=== PATIENT | female | born 1935 | race Caucasian/White ===

== ENCOUNTER 2016-03-06 17:13 | Observation (INO) | payer MEDICARE, BC ==
[2016-03-06] MEDS ORDERED: SODIUM CHLORIDE 0.9% 1,000 ML IV STA (17:18)
[2016-03-06 17:50] LABS: Basophils # (A) 0.1 k/uL (0-0.2); Basophils % (A) 1 %; CH 31.7; CHCM 34.7; Eosinophils # (A) 0.2 k/uL (0-0.7); Eosinophils % (A) 2 %; HCT 43.8 % (34.0-46.0); HDW 2.74; HGB 14.8 gm/dL (11.4-16.0); Luc # (Auto) 0.11; Luc % (Auto) 1; Lymphocytes # (A) 1.7 k/uL (1.0-4.8); Lymphocytes % (A) 15 %; MCHC 33.8 g/dL (31.0-37.0); MCV 91.7 fL (80.0-100.0); Mean Platelet Volume 7.2; Monocytes # (A) 0.6 k/uL (0-1.0); Monocytes % (A) 5 %; Neutrophils # (A) 8.6 k/uL (1.3-7.7); Neutrophils % (A) 76 %; RBC 4.78 m/uL (3.80-5.40); RDW 12.6 % (11.5-15.5); WBC 11.2 k/uL (3.8-10.6); WBC (Perox) 11.61
[2016-03-06 18:05] LABS: Calcium 9.7 mg/dL (8.4-10.2); Potassium 4.1 mmol/L (3.5-5.1); Total Bilirubin 1.1 mg/dL (0.2-1.3); Total Protein 6.9 g/dL (6.3-8.2)
[2016-03-06 18:14] LABS: Prothrombin Time 10.2 sec (9.0-12.0)
[2016-03-06 18:15] LABS: Partial Thromboplastin Time 21.5 sec (22.0-30.0)
--- NOTE | 2016-03-06 18:33 | CT ---
EXAMINATION TYPE: CT brain wo con DATE OF EXAM: 03/06/2016 6:27 PM COMPARISON: 03/07/2014 HISTORY: weakness CT DLP: 1121 mGycm Automated exposure control for dose reduction was used. FINDINGS: There is cerebral cortical atrophy. There is no mass effect nor midline shift. There is no sign of in tracranial hemorrhage. The calvarium is intact. IMPRESSION: Cerebral atrophy. No acute intracranial abnormality. No change compared to old exam.
--- NOTE | 2016-03-06 18:41 | CT ---
EXAMINATION TYPE: CT abdomen pelvis wo con DATE OF EXAM: 03/06/2016 6:27 PM COMPARISON: 12/30/2014 HISTORY: Lower Abdominal pain with Nausea and vomiting. CT DLP: 763 mGycm Automated exposure control for dose reduction was used. FINDINGS: Lung bases are clear of consolidation. There is no pleural effusion. There are clips from cholecystectomy. Liver shows no focal defect. Spleen appears normal. There is no sign of a pancreatic mass. Bile ducts are not dilated. There is no adrenal mass. Kidneys have normal size and contour. There is no hydronephrosis. Ureters are not dilated. There is no retroperitoneal a denopathy. There is no ascites. There is no evidence of appendicitis. Bladder distends smoothly. Ther e is no sign of a pelvic mass. There is retained fecal material in the rectum and sigmoid colon. Ther e are a few sigmoid diverticula. There is no sign of diverticulitis. I see no bony destructive proces s. There are multilevel spondylotic changes in the lumbar spine with vacuum disc. There is no benson harley fracture. IMPRESSION: THERE IS SOME CONSTIPATION. MILD SIGMOID DIVERTICULOSIS WITHOUT EVIDENCE OF DIVERTICULITIS. NO SIGN O F ACUTE ABDOMEN AND PELVIS. FECAL MATERIAL IS INCREASED COMPARED TO OLD EXAM.
--- NOTE | 2016-03-06 18:42 | XR ---
EXAMINATION TYPE: XR chest 2V DATE OF EXAM: 03/06/2016 6:25 PM COMPARISON: 12/30/2014 HISTORY: Syncope TECHNIQUE: Frontal and lateral views of the chest are obtained. FINDINGS: There is no heart failure nor confluent pneumonic infiltrate. Heart and mediastinum are no rmal. Diaphragm is normal. There are chest leads. Bony thorax is intact. IMPRESSION: No active cardiopulmonary disease. No change.
[2016-03-06] MEDS ORDERED: ONDANSETRON 4 MG/2 ML VIAL IVP PRN (18:56)
[2016-03-06] MEDS ORDERED: traMADol 50 MG TAB PO PRN (18:56)
[2016-03-06] MEDS ORDERED: NALOXONE 0.4 MG/ML 1 ML VIAL IV PRN (18:56)
--- NOTE | 2016-03-06 18:56 | ED ---
General Adult HPI - General Chief complaint: Abdominal Pain Stated complaint: Abd Pain Time Seen by Provider: 03/06/16 17:18 Source: patient, family, EMS Mode of arrival: EMS Limitations: no limitations - History of Present Illness Initial comments: Patient presents with her son, who states that she had a syncopal episode earlier today. Upon speaking with her, the patient does state that she lost consciousness, and is currently having some lower abdominal pain. She has no back pain. She has no chest pain. She has no shortness of breath. She has no palpitations. The son states that she was completely out of it, had a glassy appearance to her face. She did not lose bowel or bladder continence. She denies urinary retention. - Related Data Home Medications Medication Instructions Recorded Confirmed Albuterol Sulfate [Proair Hfa] 2 puff INHALATION RT-Q4H PRN 02/04/14 03/06/16 amLODIPine [Norvasc] 5 mg PO DAILY 02/04/14 03/06/16 Aspirin 81 mg PO MOWEFR 01/21/16 03/06/16 Budesonide-Formot 160-4.5 Mcg 2 puff INHALATION RT-BID 01/21/16 03/06/16 [Symbicort 160-4.5 Mcg Inhaler] Sertraline HCl [Zoloft] 25 mg PO DAILY 03/06/16 03/06/16 Previous Rx's Medication Instructions Recorded Candesartan Cilexetil [Atacand] 32 mg PO DAILY #1 tab 09/03/15 Allergies Allergy/AdvReac Type Severity Reaction Status Date / Time No Known Allergies Allergy Verified 03/06/16 17:53 Review of Systems ROS Statement: Those systems with pertinent positive or pertinent negative responses have been documented in the HPI. ROS Other: All systems not noted in ROS Statement are negative. Past Medical History Past Medical History: Asthma, Hypertension Additional Past Medical History / Comment(s): patient denies memory impairment, but is on aricept. History of Any Multi-Drug Resistant Organisms: None Reported Past Surgical History: Cholecystectomy Past Anesthesia/Blood Transfusion Reactions: No Reported Reaction Additional Past Anesthesia/Blood Transfusion Reaction / Comment(s): pt states she has not had a blood transfusion. Past Psychological History: Depression Smoking Status: Never smoker Past Alcohol Use History: None Reported Past Drug Use History: None Reported - Past Family History Mother Family Medical History: Asthma Father Family Medical History: COPD Additional Family Medical History / Comment(s): patient states, "he probably from smoking." General Exam Limitations: no limitations General appearance: alert, in no apparent distress Head exam: Present: atraumatic, normocephalic, normal inspection Eye exam: Present: normal appearance, PERRL, EOMI. Absent: scleral icterus, conjunctival injection, periorbital swelling ENT exam: Present: normal exam, mucous membranes moist Neck exam: Present: normal inspection. Absent: tenderness, meningismus, lymphadenopathy Respiratory exam: Present: normal lung sounds bilaterally. Absent: respiratory distress, wheezes, rales, rhonchi, stridor Cardiovascular Exam: Present: regular rate, normal rhythm, normal heart sounds. Absent: systolic murmur, diastolic murmur, rubs, gallop, clicks GI/Abdominal exam: Present: soft, normal bowel sounds. Absent: distended, tenderness, guarding, rebound, rigid Extremities exam: Present: normal inspection, full ROM, normal capillary refill. Absent: tenderness, pedal edema, joint swelling, calf tenderness Back exam: Present: normal inspection Neurological exam: Present: alert, oriented X3, CN II-XII intact Psychiatric exam: Present: normal affect, normal mood Skin exam: Present: warm, dry, intact, normal color. Absent: rash Course Vital Signs 03/06/16 03/06/16 03/06/16 17:17 17:23 17:41 Temperature 97.9 F Pulse Rate 64 59 L 58 L Respiratory 22 18 18 Rate Blood Pressure 134/83 91/56 113/61 O2 Sat by Pulse 100 93 L Oximetry EKG Findings - EKG Comments: EKG Findings:: Twelve-lead EKG is obtained, interpreted by me as showing ventricular rate 61 bpm, normal MA interval and QRS complex is, no ST elevation or depression, interpreted by me as normal sinus and, normal EKG. Medical Decision Making - Medical Decision Making Patient complains of a syncopal episode, belly pain. At this time she is alert and appropriate, answering questions. She does confirm syncopal episode, also demonstrated by her son. I believe that given her age and comorbidities she will require admission to the hospital. - Lab Data Result diagrams: 03/06/16 17:30 03/06/16 17:30 Lab Results 03/06/16 03/06/16 03/06/16 Range/Units 17:30 17:30 17:30 WBC 11.2 H (3.8-10.6) k/uL RBC 4.78 (3.80-5.40) m/uL Hgb 14.8 (11.4-16.0) gm/dL Hct 43.8 (34.0-46.0) % MCV 91.7 (80.0-100.0) fL MCH 31.0 (25.0-35.0) pg MCHC 33.8 (31.0-37.0) g/dL RDW 12.6 (11.5-15.5) % Plt Count 349 (150-450) k/uL Neutrophils % 76 % Lymphocytes % 15 % Monocytes % 5 % Eosinophils % 2 % Basophils % 1 % Neutrophils # 8.6 H (1.3-7.7) k/uL Lymphocytes # 1.7 (1.0-4.8) k/uL Monocytes # 0.6 (0-1.0) k/uL Eosinophils # 0.2 (0-0.7) k/uL Basophils # 0.1 (0-0.2) k/uL PT 10.2 (9.0-12.0) sec INR 1.0 (<1.1) APTT 21.5 L (22.0-30.0) sec Sodium 145 (137-145) mmol/L Potassium 4.1 (3.5-5.1) mmol/L Chloride 105 (98-107) mmol/L Carbon Dioxide 22 (22-30) mmol/L Anion Gap 18 mmol/L BUN 21 H (7-17) mg/dL Creatinine 1.45 H (0.52-1.04) mg/dL Est GFR (MDRD) Af Amer 42 (>60 ml/min/1.73 sqM) Est GFR (MDRD) Non-Af 35 (>60 ml/min/1.73 sqM) Glucose 115 H (74-99) mg/dL Calcium 9.7 (8.4-10.2) mg/dL Magnesium 2.0 (1.6-2.3) mg/dL Total Bilirubin 1.1 (0.2-1.3) mg/dL AST 26 (14-36) U/L ALT 30 (9-52) U/L Alkaline Phosphatase 165 H (38-126) U/L Troponin I (0.000-0.034) ng/mL Total Protein 6.9 (6.3-8.2) g/dL Albumin 4.1 (3.5-5.0) g/dL 03/06/16 Range/Units 17:30 WBC (3.8-10.6) k/uL RBC (3.80-5.40) m/uL Hgb (11.4-16.0) gm/dL Hct (34.0-46.0) % MCV (80.0-100.0) fL MCH (25.0-35.0) pg MCHC (31.0-37.0) g/dL RDW (11.5-15.5) % Plt Count (150-450) k/uL Neutrophils % % Lymphocytes % % Monocytes % % Eosinophils % % Basophils % % Neutrophils # (1.3-7.7) k/uL Lymphocytes # (1.0-4.8) k/uL Monocytes # (0-1.0) k/uL Eosinophils # (0-0.7) k/uL Basophils # (0-0.2) k/uL PT (9.0-12.0) sec INR (<1.1) APTT (22.0-30.0) sec Sodium (137-145) mmol/L Potassium (3.5-5.1) mmol/L Chloride (98-107) mmol/L Carbon Dioxide (22-30) mmol/L Anion Gap mmol/L BUN (7-17) mg/dL Creatinine (0.52-1.04) mg/dL Est GFR (MDRD) Af Amer (>60 ml/min/1.73 sqM) Est GFR (MDRD) Non-Af (>60 ml/min/1.73 sqM) Glucose (74-99) mg/dL Calcium (8.4-10.2) mg/dL Magnesium (1.6-2.3) mg/dL Total Bilirubin (0.2-1.3) mg/dL AST (14-36) U/L ALT (9-52) U/L Alkaline Phosphatase (38-126) U/L Troponin I <0.012 (0.000-0.034) ng/mL Total Protein (6.3-8.2) g/dL Albumin (3.5-5.0) g/dL Disposition Clinical Impression: Syncope Disposition: ADMITTED IP TO THIS HOSP Condition: Fair Time of Disposition: 18:56
[2016-03-06] MEDS ORDERED: ALBUTEROL NEBULIZED 2.5 MG/3 ML INHALATION PRN (18:58)
[2016-03-06 19:17] LABS: Appearance,Urine Cloudy (Clear); Bacteria,Urine Many /hpf; Bilirubin,Urine 1+ (Negative); Glucose,Urine (UA) Negative (Negative); Ketones,Urine Trace (Negative); Leukocyte Esterase,Urine Large (Negative); Mucus,Urine Few /hpf; Nitrite,Urine Negative (Negative); PH, Urine 5.5 (5.0-8.0); Particle Count 34291; Protein,Urine 1+ (Negative); RBC,Urine 4 /hpf (0-5); Specific Gravity,Urine 1.015 (1.001-1.035); UA Billing (MACRO vs. MICRO) MICRO; WBC,Urine >182 /hpf (0-5)
[2016-03-06] MEDS: SYMBICORT 160-4.5 MCG INHALER INHALATION SCH (19:54)
[2016-03-06 21:24] VITALS: BMI 24.0
[2016-03-06] MEDS: FAMOTIDINE 20 MG TAB PO SCH (23:48)
[2016-03-07] MEDS: SYMBICORT 160-4.5 MCG INHALER INHALATION SCH ×2 (08:10→20:40)
[2016-03-07] MEDS ORDERED: ASPIRIN 81 MG CHEW PO SCH (09:00)
[2016-03-07] MEDS: LEVOFLOXACIN 500MG-D5W PMX 500 MG in DEXTROSE/WATER 1 100ML.BAG IVPB SCH (09:53)
[2016-03-07] MEDS: SODIUM CHLORIDE 0.9% 1,000 ML IV SCH ×2 (09:54→21:51)
[2016-03-07] MEDS: FAMOTIDINE 20 MG TAB PO SCH (09:54)
[2016-03-07] MEDS: SERTRALINE 25 MG TAB PO SCH (09:54)
[2016-03-07] MEDS: amLODIPine 5 MG TAB PO SCH (13:06)
[2016-03-07] MEDS ORDERED: INFLUENZA VACCINE (3YR+) 60 MCG/0.5 ML SYRINGE IM ONE (17:41)
[2016-03-08] MEDS: PANTOPRAZOLE 40 MG/10 ML VIAL IVP SCH ×2 (00:02→08:28)
[2016-03-08] MEDS: LEVOFLOXACIN 500MG-D5W PMX 500 MG in DEXTROSE/WATER 1 100ML.BAG IVPB SCH (08:26)
[2016-03-08] MEDS: amLODIPine 5 MG TAB PO SCH (08:28)
[2016-03-08] MEDS: SERTRALINE 25 MG TAB PO SCH (08:28)
[2016-03-08] MEDS: HEPARIN SODIUM,PORCINE 5,000 UNIT/ML 1 ML VIAL SQ SCH ×2 (08:28→20:32)
[2016-03-08] MEDS ORDERED: FAMOTIDINE 20 MG TAB PO SCH (09:00)
[2016-03-08] MEDS: SYMBICORT 160-4.5 MCG INHALER INHALATION SCH ×2 (09:35→21:07)
[2016-03-08] MEDS: SODIUM CHLORIDE 0.9% 1,000 ML IV SCH (11:16)
--- NOTE | 2016-03-08 12:20 | HP ---
DATE OF ADMISSION: 03/07/2016 CHIEF COMPLAINT: Syncope and diminished oral intake. HISTORY OF PRESENT ILLNESS: This 80-year-old woman with past medical history of multiple medical problems including asthma, history of dementia, hypertension, history of cholecystitis, history of depression being followed by Dr. Alvina Crow in the outpatient setting is being closely followed by family members taking turns. The patient apparently had diminished p.o. intake and the patient yesterday had episodes of syncope and the patient was staring for some time after passing out according to the son, which lasted probably a few seconds up to 20 to 30 seconds. Patient came to [facility]. Patient had relative hypotension and patient dehydrated. Creatinine was 1.4. The patient is being hydrated at this time. The patient also had features of urinary tract infection. IV antibiotics also initiated. There is no history of fever, rigors, chills. No history of headache at this time. PAST MEDICAL HISTORY: History of dementia, history of asthma, hypertension, history of cholecystectomy, depression. MEDICATIONS PRIOR TO ADMISSION: 1. Zoloft 25 mg daily. 2. Norvasc 5 mg daily. 3. Atacand 32 mg daily. 4. Symbicort 160/4.5, 2 puffs b.i.d. 5. Aspirin 81 mg Thursday, Thursday, Thursday. 6. ProAir HFA 2 puffs q.4 p.r.n. ALLERGIES: None. FAMILY HISTORY: History of asthma in the family. SOCIAL HISTORY: No history smoking. No history of alcohol. REVIEW OF SYSTEMS: ENT: Diminished hearing, diminished vision. CARDIOVASCULAR: No angina or palpitations. RESPIRATORY: No cough. GI: No nausea. : No dysuria. NERVOUS SYSTEM: No numbness or weakness. ALLERGY/IMMUNOLOGY: Asthma. MUSCULOSKELETAL: As mentioned earlier. HEMATOLOGY/ONCOLOGY: No history of anemia. ENDOCRINE: No history of diabetes, hypothyroidism CONSTITUTIONAL: As mentioned earlier. DERMATOLOGY: Negative. RHEUMATOLOGY: Negative. PSYCHIATRY: As mentioned earlier. PHYSICAL EXAMINATION: Patient is alert and oriented x( ) Pulse 56, blood pressure 120/59, respirations 16, temperature 97 degrees, pulse ox 96% on room air. HEENT: Conjunctivae normal. Oral mucosa dry. NECK: No jugular venous distention. No carotid bruit. No lymph node enlargement. CARDIOVASCULAR: S1 and S2, muffled. No S3, no S4. RESPIRATORY: Breath sounds diminished at the bases. A few scattered rhonchi, no crackles. ABDOMEN: Soft, nontender. No mass palpable. No hepatosplenomegaly. LEGS: No edema, no swelling. NERVOUS SYSTEM: Higher function as mentioned. Moves all four limbs. Mild diffuse weakness. LYMPHATIC: No lymphadenopathy in the neck, axillae or groin. SKIN: No ulcer, rash or bleeding. LABS: WBC 11.2, creatinine is 1.45. ASSESSMENT: 1. Syncope possibly hypovolemic secondary to hypotension and hypovolemia. 2. Possible urinary tract infection with early sepsis. 3. Increased WBC. 4. Increased creatinine with mild acute renal failure, possibly. 5. History of asthma. 6. History of dementia. 7. History of hypertension. 8. History of memory impairment. 9. History of cholecystectomy. 10. History of depression. 11. Diminished oral intake. 12. FULL CODE. RECOMMENDATIONS AND DISCUSSION: In this 80-year-old woman who presented with multiple complex medical issues, we will monitor the patient closely. Continue the current medications and symptomatic treatment. Start empiric antibiotics. Otherwise, will recommend symptomatic treatment. Follow the cultures. DVT prophylaxis. Guarded prognosis because of multiple complex medical issues. We will hold the I would recommend orthostatic vitals. Further recommendations to follow. Copy of dictation forwarded to Dr. Alvina Crow who is the primary physician. I discussed with the son at length and further recommendations to follow. Prognosis guarded. See orders for details. MTDD
[2016-03-08 16:12] LABS: Basophils % (A) 1 %; CH 31.5; CHCM 34.2; Eosinophils # (A) 0.4 k/uL (0-0.7); Eosinophils % (A) 6 %; HCT 36.3 % (34.0-46.0); HDW 2.75; HGB 12.3 gm/dL (11.4-16.0); Luc # (Auto) 0.09; Luc % (Auto) 1; Lymphocytes # (A) 1.6 k/uL (1.0-4.8); Lymphocytes % (A) 23 %; MCH 31.3 pg (25.0-35.0); MCHC 33.8 g/dL (31.0-37.0); MCV 92.5 fL (80.0-100.0); Mean Platelet Volume 6.9; Monocytes # (A) 0.3 k/uL (0-1.0); Monocytes % (A) 5 %; Neutrophils # (A) 4.5 k/uL (1.3-7.7); Neutrophils % (A) 64 %; RBC 3.93 m/uL (3.80-5.40); RDW 12.6 % (11.5-15.5); WBC (Perox) 7.48
[2016-03-08 16:23] LABS: Calcium 8.6 mg/dL (8.4-10.2); Potassium 4.1 mmol/L (3.5-5.1)
--- NOTE | 2016-03-08 20:24 | PN ---
DATE OF SERVICE: 03/08/2016 This 80 -year-old woman was admitted with syncope as well as UTI, is being closely monitored. The patient on broad spectrum IV antibiotics. The patient is on IV fluids as well. Blood pressure is definitely improving at this time. PAST MEDICAL HISTORY: Reviewed. REVIEW OF SYSTEMS: CARDIOVASCULAR: No angina or palpitations. RESPIRATORY: As mentioned earlier. GASTROINTESTINAL: As mentioned earlier. GENITOURINARY: No dysuria. CENTRAL NERVOUS SYSTEM: Mild diffuse weakness. Current medications are reviewed and include: 1. Ventolin q.4h and p.r.n. 2. Norvasc 5 mg p.o. daily. 3. Aspirin 81 mg a day. 5. Heparin 5000 subcu b.i.d. 6. Levaquin 250 mg 24 hours. 7. Narcan p.r.n. 8. Zofran p.r.n. 9. Protonix 40 mg daily. 10. Zoloft 25 mg daily. 11. Ultram 50 mg q6h p.r.n. PHYSICAL EXAMINATION: The patient is alert and oriented x2. Pulse 56, blood pressure 128/66 and respiratory rate 16. Temperature 97.9, pulse ox 97% on room air. HEENT: Conjunctivae normal. Oral mucosa moist. NECK: No jugular venous distention. No carotid bruit. No lymph node enlargement. CARDIOVASCULAR: S1, S2 muffled. RESPIRATORY: Breath sounds diminished at the bases. No rhonchi. No crackles. ABDOMEN: soft, nontender. No mass palpable. LEGS: No edema. No swelling. CENTRAL NERVOUS SYSTEM: Higher functions as mentioned earlier. Moves all four limbs. No focal deficits. LYMPHATICS: No lymph nodes palpable in the neck, axillae or groin. SKIN: No rashes. LABS: WBC 11.2. The most recent labs are not available. Creatinine is 1.45. UA noted. ASSESSMENT: 1. Syncope possibly hypovolemic secondary to hypotension and as well as hypovolemia. 2. Urinary tract infection with early sepsis, present on admission. 3. Increased WBC. 4. Changes in mental status, metabolic encephalopathy, acute on chronic. 5. Increased creatinine with mild acute renal failure, possibly. 6. History of asthma. 7. History of dementia. 8. History of hypertension. 9. History of memory impairment. 10. History of cholecystectomy. 11. History of depression. 12. Diminished oral intake. 13. FULL CODE. RECOMMENDATIONS AND DISCUSSION: In this 80-year-old woman who presented with multiple complex medical issues, we will monitor the patient closely. Continue the current medications. Continue symptomatic treatment. Otherwise, recommend continue with IV fluids. Continue with empiric antibiotics. Otherwise, continue to monitor. Increase ambulation, continue with IV hydration. Continue with DVT prophylaxis. See orders for further details. Medications reconciliation done. Prognosis guarded. I discussed with the family at length. Further recommendations to follow. MTDD
[2016-03-09] MEDS: SODIUM CHLORIDE 0.9% 1,000 ML IV SCH (02:06)
[2016-03-09 07:40] VITALS: BP 135/74; PULSE 53; RESP 18; TEMP 97
[2016-03-09] MEDS: amLODIPine 5 MG TAB PO SCH (08:38)
[2016-03-09] MEDS: SERTRALINE 25 MG TAB PO SCH (08:38)
[2016-03-09] MEDS: HEPARIN SODIUM,PORCINE 5,000 UNIT/ML 1 ML VIAL SQ SCH (08:38)
[2016-03-09] MEDS ORDERED: LEVOFLOXACIN 250MG-D5W PMX 250 MG in DEXTROSE/WATER 1 50ML.BAG IVPB SCH (09:00)
[2016-03-09] MEDS ORDERED: PANTOPRAZOLE 40 MG TABLET PO SCH (09:00)
[2016-03-09 09:14] LABS: Basophils # (A) 0.1 k/uL (0-0.2); Basophils % (A) 1 %; CH 31.7; CHCM 34.3; Eosinophils # (A) 0.5 k/uL (0-0.7); Eosinophils % (A) 9 %; HCT 36.2 % (34.0-46.0); HDW 2.75; HGB 12.1 gm/dL (11.4-16.0); Luc # (Auto) 0.08; Luc % (Auto) 1; Lymphocytes # (A) 1.5 k/uL (1.0-4.8); Lymphocytes % (A) 27 %; MCHC 33.5 g/dL (31.0-37.0); MCV 92.6 fL (80.0-100.0); Mean Platelet Volume 7.1; Monocytes # (A) 0.2 k/uL (0-1.0); Monocytes % (A) 5 %; Neutrophils # (A) 3.2 k/uL (1.3-7.7); Neutrophils % (A) 58 %; RBC 3.91 m/uL (3.80-5.40); RDW 12.6 % (11.5-15.5); WBC 5.5 k/uL (3.8-10.6)
[2016-03-09] MEDS: SYMBICORT 160-4.5 MCG INHALER INHALATION SCH (09:19)
[2016-03-09 09:25] LABS: Anion Gap 9 mmol/L; Blood Urea Nitrogen 13 mg/dL (7-17); Calcium 8.5 mg/dL (8.4-10.2); Carbon Dioxide 24 mmol/L (22-30); Chloride 110 mmol/L (98-107); Glucose 99 mg/dL (74-99); Non-African American GFR(MDRD) 53 (>60 ml/min/1.73 sqM); Potassium 3.7 mmol/L (3.5-5.1); Sodium 143 mmol/L (137-145)
--- NOTE | 2016-03-12 15:11 | DS ---
DATE OF ADMISSION: 03/06/2016 DATE OF DISCHARGE: 03/09/2016 FINAL DIAGNOSES: 1. Syncope, possibly hypovolemia, secondary to hypotension as well as hypovolemia. 2. Urinary tract infection with early sepsis present on admission. 3. Increased WBC. 4. Change in mental status, metabolic encephalopathy, acute on chronic. 5. Increased creatinine with mild acute renal failure, possibly prerenal and dehydration. 6. History of asthma. 7. History of dementia. 8. History of hypertension. 9. History of memory impairment. 11. History of depression. 12. Diminished oral intake. 13. FULL CODE. DISCHARGE DISPOSITION: The patient will be discharged in a stable condition with guarded prognosis. Total time taken 35 minutes. Patient will be discharged the patient is much improved. HISTORY OF PRESENT ILLNESS: This 80-year-old woman with a past medical history of multiple medical problems admitted with dehydration and hypotension as well as possible urinary tract infection with sepsis. Treated with antibiotics, IV fluids, patient improved significantly. Cultures are negative at this. On exam, vitals are stable. CARDIOVASCULAR SYSTEM: S1, S2 muffled. ABDOMEN: Soft. CENTRAL NERVOUS SYSTEM: No focal deficits. The patient improved significantly. Blood pressure also improved. The patient will be discharged in a stable with guarded prognosis with the following advice and medications: 1. Diet is cardiac. 2. Activity limited until follow up. 3. Follow-up with Dr. Crow in 1 to 2 days. 4. Medications are albuterol Pro-Air 2 puffs q.i.d. and p.r.n. 5. Aspirin 81 milligram p.o. daily. 6. Symbicort 160/4.5 2 puffs b.i.d. 7. Atacand 32 mg p.o. daily. 8. Levaquin 250 mg daily for 5 days. 9. Multivitamins one p.o. daily. 10. Protonix 40 mg p.o. daily. 11. Zoloft 25 mg p.o. daily. 12. Norvasc 5 mg p.o. daily. Once again the patient will be discharged in a stable condition with guarded prognosis. MTDD
== END 2016-03-09 15:00 | disposition home or self-care (01) ==
LOC: EC 17:13 → 6SEL 18:56 → 4MS4W 03-07 21:32
PROVIDERS: ADMIT Internal Medicine; ATTEND Internal Medicine
DX: R55 Syncope and collapse (principal); I95.9 Hypotension, unspecified; N39.0 Urinary tract infection, site not specified; A41.9 Sepsis, unspecified organism; G93.41 Metabolic encephalopathy; N17.9 Acute kidney failure, unspecified; J45.909 Unspecified asthma, uncomplicated; F03.90 Unspecified dementia, unspecified severity, without behavioral disturbance, psychotic disturbance, mood disturbance, and anxiety; I10 Essential (primary) hypertension; F32.9 Major depressive disorder, single episode, unspecified; R10.30 Lower abdominal pain, unspecified; Z90.49 Acquired absence of other specified parts of digestive tract; Z82.5 Family history of asthma and other chronic lower respiratory diseases; Z79.82 Long term (current) use of aspirin; Z79.51 Long term (current) use of inhaled steroids
CPT/HCPCS: 36415; 94640 ×3; 93005; 80053; 80048 ×2; 83735; 84484 ×2; 85025 ×3; 85610; 85730; 81001; 71020; 70450; 74176; 99285; 96361; G0378 ×5; J1644 ×2; J1956 ×3; C9113; 96365; 96366; 96372; 96375

== ENCOUNTER 2018-02-28 22:49 | Inpatient (IN) | payer MEDICARE, BC ==
[2018-02-28] MEDS ORDERED: SODIUM CHLORIDE 0.9% 1,000 ML IV STA (23:41)
[2018-03-01 00:51] LABS: Basophils # (A) 0.1 k/uL (0-0.2); Basophils % (A) 1 %; Eosinophils # (A) 0.6 k/uL (0-0.7); Eosinophils % (A) 7 %; HCT 46.7 % (34.0-46.0); HGB 15.2 gm/dL (11.4-16.0); Lymphocytes # (A) 1.9 k/uL (1.0-4.8); Lymphocytes % (A) 20 %; MCH 30.5 pg (25.0-35.0); MCHC 32.7 g/dL (31.0-37.0); MCV 93.3 fL (80.0-100.0); Mean Platelet Volume 7.5; Monocytes # (A) 0.4 k/uL (0-1.0); Monocytes % (A) 4 %; Neutrophils # (A) 6.5 k/uL (1.3-7.7); Neutrophils % (A) 68 %; Platelet Count 353 k/uL (150-450); WBC 9.6 k/uL (3.8-10.6)
[2018-03-01 00:56] LABS: Appearance,Urine Cloudy (Clear); Bacteria,Urine Few /hpf; Bilirubin,Urine Negative (Negative); Blood,Urine Moderate (Negative); Color,Urine Yellow; Glucose,Urine (UA) Negative (Negative); Hyaline Casts,Urine 105 /lpf (0-2); Ketones,Urine Trace (Negative); Leukocyte Esterase,Urine Large (Negative); Mucus,Urine Occasional /hpf; Nitrite,Urine Negative (Negative); Protein,Urine 1+ (Negative); RBC,Urine 5 /hpf (0-5); Specific Gravity,Urine 1.018 (1.001-1.035); Squamous Epithelial Cell,Urine 6 /hpf (0-4); WBC,Urine 22 /hpf (0-5)
--- NOTE | 2018-03-01 01:04 | XR ---
EXAMINATION TYPE: XR chest 2V DATE OF EXAM: 03/01/2018 COMPARISON: 03/06/2016 HISTORY: Weakness TECHNIQUE: Frontal and lateral views of the chest are obtained. FINDINGS: Heart and mediastinum are normal. Lungs are clear. Diaphragm is normal. Bony thorax appear s intact. IMPRESSION: Normal chest. No change.
[2018-03-01 01:08] LABS: Albumin 4.3 g/dL (3.5-5.0); Calcium 9.7 mg/dL (8.4-10.2); Magnesium 2.5 mg/dL (1.6-2.3); Potassium 5.5 mmol/L (3.5-5.1); Total Bilirubin 0.6 mg/dL (0.2-1.3)
--- NOTE | 2018-03-01 01:21 | ED ---
General Adult HPI - General Chief complaint: Recheck/Abnormal Lab/Rx Stated complaint: Dehydration Time Seen by Provider: 02/28/18 23:29 Source: patient, family Mode of arrival: ambulatory Limitations: altered mental status - History of Present Illness Initial comments: Patient is an 82-year-old female presenting for decreased by mouth intake. The patient some's bedside and states that he normally checks on her 2-3 times a week and since Thursday, she has had significantly decreased by mouth intake and that she is only drank 7 ounces of fluids today as well as last 2 days. Patient is alert and oriented 1 but is pleasant and is unable to provide a complete review of systems. However, she denies any abdominal pain, chest pain , shortness of breath or nausea/vomiting/diarrhea. - Related Data Home Medications Medication Instructions Recorded Confirmed Albuterol Sulfate [Proair Hfa] 2 puff INHALATION RT-Q4H PRN 02/04/14 03/06/16 amLODIPine [Norvasc] 5 mg PO DAILY 02/04/14 03/06/16 Aspirin 81 mg PO MOWEFR 01/21/16 03/06/16 Budesonide-Formot 160-4.5 Mcg 2 puff INHALATION RT-BID 01/21/16 03/06/16 [Symbicort 160-4.5 Mcg Inhaler] Sertraline HCl [Zoloft] 25 mg PO DAILY 03/06/16 03/06/16 Previous Rx's Medication Instructions Recorded Candesartan Cilexetil [Atacand] 32 mg PO DAILY #1 tab 09/03/15 Levofloxacin [Levaquin] 250 mg PO DAILY #5 tablet 03/09/16 Multivitamins, Thera [Multivitamin] 1 tab PO DAILY #30 tablet 03/09/16 Pantoprazole [Protonix] 40 mg PO DAILY #30 tablet. 03/09/16 Allergies Allergy/AdvReac Type Severity Reaction Status Date / Time No Known Allergies Allergy Verified 02/28/18 22:59 Review of Systems ROS Statement: Those systems with pertinent positive or pertinent negative responses have been documented in the HPI. Unable to obtain secondary to dementia ROS Other: All systems not noted in ROS Statement are negative. Past Medical History Past Medical History: Asthma, Dementia, Hypertension Additional Past Medical History / Comment(s): patient denies memory impairment, but is on aricept. History of Any Multi-Drug Resistant Organisms: None Reported Past Surgical History: Cholecystectomy Past Anesthesia/Blood Transfusion Reactions: No Reported Reaction Additional Past Anesthesia/Blood Transfusion Reaction / Comment(s): pt states she has not had a blood transfusion. Past Psychological History: Depression Smoking Status: Never smoker Past Alcohol Use History: None Reported Past Drug Use History: None Reported - Past Family History Mother Family Medical History: Asthma Father Family Medical History: COPD Additional Family Medical History / Comment(s): patient states, "he probably from smoking." General Exam - General Exam Comments Initial Comments: Constitutional: Pt is oriented to person. Pt appears well-developed and well- nourished. No distress. HENT: Head: Normocephalic and atraumatic. Eyes: EOM are normal. Neck: Normal range of motion. Neck supple. Oropharynx: Dry mucous membranes present Cardiovascular: Normal rate, regular rhythm, S1 normal, S2 normal and normal heart sounds. Exam reveals no gallop and no friction rub. No murmur heard. Pulmonary/Chest: Effort normal and breath sounds normal. No tachypnea and no bradypnea. No respiratory distress. No wheezes or rales noted. Abdominal: Soft. Bowel sounds are normal. Pt exhibits no shifting dullness, no distension, no pulsatile liver, no fluid wave, no abdominal bruit and no ascites. There is no tenderness. There is no rigidity, no rebound, no guarding, no tenderness at McBurney's point and negative Vernon's sign. Musculoskeletal: Normal range of motion. Neurological: Pt is alert and oriented to person. No cranial nerve deficit. Skin: Skin is warm and dry. No rash noted. Pt is not diaphoretic. No erythema. No pallor. Psychiatric: Pt has a normal mood and affect. Pt behavior is normal. Thought content normal. Limitations: altered mental status Course Vital Signs 02/28/18 22:54 Temperature 98 F Pulse Rate 81 Respiratory 16 Rate Blood Pressure 93/52 O2 Sat by Pulse 100 Oximetry EKG Findings - EKG Comments: EKG Findings:: EKG shows normal sinus rhythm with a rate of 68 bpm, PA interval 160, QRS 70, QTC 433 Medical Decision Making - Medical Decision Making Laboratory studies showed that there is no significant leukocytosis but from a kidney standpoint, it is thought that there is significant acute kidney injury as a creatinine is elevated from baseline of 1 to 1.82. Additionally, urinalysis is positive for urinary tract infection and BUN is increased from baseline of 13 to 56. Because the patient lives alone and has no one to care for her, it is thought that it would be best suited if she stays in the hospital and has IV hydration. Additionally, the patient was started on Rocephin. - Lab Data Result diagrams: 03/01/18 00:10 03/01/18 00:10 Lab Results 03/01/18 03/01/18 03/01/18 Range/Units 00:10 00:10 00:10 WBC 9.6 (3.8-10.6) k/uL RBC 5.00 (3.80-5.40) m/uL Hgb 15.2 (11.4-16.0) gm/dL Hct 46.7 H (34.0-46.0) % MCV 93.3 (80.0-100.0) fL MCH 30.5 (25.0-35.0) pg MCHC 32.7 (31.0-37.0) g/dL RDW 13.0 (11.5-15.5) % Plt Count 353 (150-450) k/uL Neutrophils % 68 % Lymphocytes % 20 % Monocytes % 4 % Eosinophils % 7 % Basophils % 1 % Neutrophils # 6.5 (1.3-7.7) k/uL Lymphocytes # 1.9 (1.0-4.8) k/uL Monocytes # 0.4 (0-1.0) k/uL Eosinophils # 0.6 (0-0.7) k/uL Basophils # 0.1 (0-0.2) k/uL Sodium 141 (137-145) mmol/L Potassium 5.5 H (3.5-5.1) mmol/L Chloride 110 H (98-107) mmol/L Carbon Dioxide 20 L (22-30) mmol/L Anion Gap 11 mmol/L BUN 56 H (7-17) mg/dL Creatinine 1.82 H (0.52-1.04) mg/dL Est GFR (CKD-EPI)AfAm 29 (>60 ml/min/1.73 sqM) Est GFR (CKD-EPI)NonAf 25 (>60 ml/min/1.73 sqM) Glucose 103 H (74-99) mg/dL Calcium 9.7 (8.4-10.2) mg/dL Magnesium 2.5 H (1.6-2.3) mg/dL Total Bilirubin 0.6 (0.2-1.3) mg/dL AST 27 (14-36) U/L ALT 21 (9-52) U/L Alkaline Phosphatase 102 (38-126) U/L Troponin I (0.000-0.034) ng/mL NT-Pro-B Natriuret Pep 110 pg/mL Total Protein 8.0 (6.3-8.2) g/dL Albumin 4.3 (3.5-5.0) g/dL Urine Color Urine Appearance (Clear) Urine pH (5.0-8.0) Ur Specific [place] (1.001-1.035) Urine Protein (Negative) Urine Glucose (UA) (Negative) Urine Ketones (Negative) Urine Blood (Negative) Urine Nitrite (Negative) Urine Bilirubin (Negative) Urine Urobilinogen (<2.0) mg/dL Ur Leukocyte Esterase (Negative) Urine RBC (0-5) /hpf Urine WBC (0-5) /hpf Ur Squamous Epith Cells (0-4) /hpf Urine Bacteria (None) /hpf Hyaline Casts (0-2) /lpf Urine Mucus (None) /hpf 03/01/18 03/01/18 Range/Units 00:10 00:10 WBC (3.8-10.6) k/uL RBC (3.80-5.40) m/uL Hgb (11.4-16.0) gm/dL Hct (34.0-46.0) % MCV (80.0-100.0) fL MCH (25.0-35.0) pg MCHC (31.0-37.0) g/dL RDW (11.5-15.5) % Plt Count (150-450) k/uL Neutrophils % % Lymphocytes % % Monocytes % % Eosinophils % % Basophils % % Neutrophils # (1.3-7.7) k/uL Lymphocytes # (1.0-4.8) k/uL Monocytes # (0-1.0) k/uL Eosinophils # (0-0.7) k/uL Basophils # (0-0.2) k/uL Sodium (137-145) mmol/L Potassium (3.5-5.1) mmol/L Chloride (98-107) mmol/L Carbon Dioxide (22-30) mmol/L Anion Gap mmol/L BUN (7-17) mg/dL Creatinine (0.52-1.04) mg/dL Est GFR (CKD-EPI)AfAm (>60 ml/min/1.73 sqM) Est GFR (CKD-EPI)NonAf (>60 ml/min/1.73 sqM) Glucose (74-99) mg/dL Calcium (8.4-10.2) mg/dL Magnesium (1.6-2.3) mg/dL Total Bilirubin (0.2-1.3) mg/dL AST (14-36) U/L ALT (9-52) U/L Alkaline Phosphatase (38-126) U/L Troponin I <0.012 (0.000-0.034) ng/mL NT-Pro-B Natriuret Pep pg/mL Total Protein (6.3-8.2) g/dL Albumin (3.5-5.0) g/dL Urine Color Yellow Urine Appearance Cloudy H (Clear) Urine pH 5.0 (5.0-8.0) Ur Specific [place] 1.018 (1.001-1.035) Urine Protein 1+ H (Negative) Urine Glucose (UA) Negative (Negative) Urine Ketones Trace H (Negative) Urine Blood Moderate H (Negative) Urine Nitrite Negative (Negative) Urine Bilirubin Negative (Negative) Urine Urobilinogen 2.0 (<2.0) mg/dL Ur Leukocyte Esterase Large H (Negative) Urine RBC 5 (0-5) /hpf Urine WBC 22 H (0-5) /hpf Ur Squamous Epith Cells 6 H (0-4) /hpf Urine Bacteria Few H (None) /hpf Hyaline Casts 105 H (0-2) /lpf Urine Mucus Occasional H (None) /hpf Disposition Clinical Impression: UTI (urinary tract infection), Acute kidney injury, Hyperkalemia, Dehydration Disposition: ADMITTED IP TO THIS [facility] Condition: Fair Referrals: Santy Crow DO [Primary Care Provider] - 1-2 days Decision to Admit Reason: Admit from EC Decision Date: 03/01/18 Decision Time: 01:45
[2018-03-01] MEDS ORDERED: NALOXONE 0.4 MG/ML 1 ML VIAL IV PRN (01:45)
[2018-03-01] MEDS ORDERED: ACETAMINOPHEN TAB 325 MG TAB PO PRN (01:45)
[2018-03-01] MEDS: SODIUM CHLORIDE 0.9% 1,000 ML IV SCH ×3 (02:09→21:29)
[2018-03-01] MEDS ORDERED: LOSARTAN 50 MG TAB PO SCH (11:15)
[2018-03-01] MEDS ORDERED: SERTRALINE 50 MG TAB PO SCH (11:15)
[2018-03-01] MEDS: ASPIRIN 81 MG PO SCH (11:38)
[2018-03-01] MEDS: ENOXAPARIN 40 MG/0.4 ML SYRINGE SQ SCH (21:25)
--- NOTE | 2018-03-01 22:44 | HP ---
HISTORY AND PHYSICAL DATE OF ADMISSION: 03/01/2018 DATE OF SERVICE: 03/01/2018 PRESENT COMPLAINT: Not eating or drinking. HISTORY OF PRESENTING COMPLAINT: This is a pleasant 82-year-old patient of Dr. Cloud, brought in by the son and daughter to the ER. The family normally checks about 2-3 times a week and they bring in her food. It looks like her oral intake has gone down and she is hardly drinking any fluids. The patient is pleasantly confused, cannot really answer questions. Does not remember eating anything. The patient does not have any cough or sputum. Denies any urinary symptoms. Denies any abdominal pain, just pleasantly smiles and answers simple questions. The patient's son and daughter, and son-in-law present. The patient has been increasingly getting forgetful and lives by herself. REVIEW OF SYSTEMS: CONSTITUTIONAL: Tired. HEENT: None. RESPIRATORY: None. CARDIOVASCULAR: None. GASTROINTESTINAL: Heartburn. GENITOURINARY: Urinary incontinence. DERMATOLOGICAL: None. HEMATOLOGICAL: None. LYMPHATICS: None. PSYCHIATRY: Forgetful. NEUROLOGICAL: Slightly unsteady on her feet, sometimes. PAST MEDICAL HISTORY: Asthma, dementia, hypertension. PAST SURGICAL HISTORY: Cholecystectomy. SOCIAL HISTORY: No smoking, no alcohol. Lives by herself. The patient's son is the power of civil rights attorney. FAMILY HISTORY: Smoking-related . HOME MEDICATIONS: 1. Zoloft 50 mg a day. 2. Atacand 32 mg a day. 3. Aspirin 81 mg Thursday, Thursday and Thursday. ALLERGIES: None. PHYSICAL EXAMINATION: VITAL SIGNS: Vital signs on presentation, temperature 98, pulse 81, respirations 16, blood pressure 93/52, pulse 100 percent on room air. GENERAL APPEARANCE: Average build, lying in bed, awake. EYES: Pupils equal. Conjunctivae pale. HEENT: External appearance of nose and ears normal. Oral cavity dry. NECK JVD not raised. Mass not palpable. RESPIRATORY: Effort normal. LUNGS: Fair entry. CARDIOVASCULAR: First and second sounds normal. No edema. ABDOMEN: Soft, nontender. Liver and spleen not palpable. LYMPHATICS: No lymph nodes palpable in the neck and axillae. PSYCHIATRY: Patient knows he is in the hospital. Does not know the year, month. He knows it is [place]. Cannot respond to any general other inquiries. INVESTIGATIONS: Reviewed in clinical context. White count 9.6, hemoglobin 15.2, platelets 353. Potassium 5.5, BUN 56, creatinine 1.82. UA positive for leukocyte esterase, WBC 6, squamous epithelial cells. Hyaline casts 105. EKG tracing personally reviewed by me shows low-voltage QRS, otherwise sinus rhythm. 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 Lung almonte are clear. No obvious infiltrates. ASSESSMENT: 1. Acute urinary tract infection with probable cystitis. 2. Probably acute renal failure from poor oral intake and also patient is on Atacand, could be combination of acute tubular necrosis and prerenal. 3. Hyperkalemia from renal failure. 4. Metabolic acidosis from renal failure. 5. Severe cognitive impairment probably from late onset Alzheimer's dementia. 6. Intermittent asthma, stable. 7. Essential hypertension. PLAN: The patient Atacand will be discontinued. Continue to also hold depression. Patient is rather pleasant otherwise. We will give IV fluids. We will check a renal ultrasound to check for chronicity. We will also add sodium bicarbonate. We will check the patient's B12 and TSH in view of dementia and also order a CT scan of the brain to rule out subdural hematoma, as patient's gait was reported to be a bit unstable. We will also get a PT/OT. Care was discussed at length with the patient's son and daughter at the bedside. The patient is not stable to be discharged. Will at least need a 2 night stay in the hospital until the above issues are sorted out and see if there is any improvement in the patient's mental status to see there is an acute component of delirium in the presentation. Copy to Dr. Crow. Care was discussed at length with the patient's son and daughter at the bedside. Questions were answered. MMODL / IJN: [id number] /
[2018-03-02] MEDS: SODIUM CHLORIDE 0.9% 1,000 ML IV SCH ×2 (07:34→14:14)
[2018-03-02] MEDS: ENOXAPARIN 40 MG/0.4 ML SYRINGE SQ SCH (07:34)
--- NOTE | 2018-03-02 08:31 | CT ---
EXAMINATION TYPE: CT brain wo con DATE OF EXAM: 03/02/2018 COMPARISON: Prior head CT 03/06/2016 HISTORY: Dementia CT DLP: 1144.7 mGycm Automated exposure control for dose reduction was used. Helical imaging through the brain. FINDINGS: Cortical atrophy is again noted. There are extensive white matter low-attenuation areas including per iventricular, subcortical white matter similar to prior exam. There is no hemorrhage or hydrocephalus . Cerebral vascular calcifications are present. Calvarium is intact. Paranasal sinuses and mastoid ai r cells as visualized are normal. Orbits are symmetric. IMPRESSION: AGE-RELATED CHANGES OF ATROPHY AND PROBABLE CHRONIC SMALL VESSEL ISCHEMIA.
--- NOTE | 2018-03-02 10:37 | US ---
EXAMINATION TYPE: US renals and bladder DATE OF EXAM: 03/02/2018 COMPARISON: NONE CLINICAL HISTORY: 82-year-old female renal failure. Confused patient TECHNIQUE: Multiple sonographic images of the kidneys and bladder are obtained. FINDINGS: EXAM MEASUREMENTS: Right Kidney: 8.3 x 3.5 x 3.1 cm Left Kidney: 8.2 x 4.2 x 3.9 cm Right Kidney: small in size Left Kidney: small in size No hydronephrosis on either side. Bladder: No gross abnormality of the partially distended bladder. Bilateral Jets seen: no IMPRESSION: No hydronephrosis on either side.
[2018-03-02 10:54] LABS: Calcium 8.8 mg/dL (8.4-10.2); Potassium 5.5 mmol/L (3.5-5.1)
[2018-03-02] MEDS ORDERED: SODIUM POLYSTYRENE SULFONATE 15 GM/60 ML BOTTLE PO STA (17:19)
[2018-03-02] MEDS: CEPHALEXIN 250 MG CAP PO SCH ×2 (18:04→19:52)
[2018-03-02] MEDS: CHLORTHALIDONE 25 MG TAB PO SCH (18:04)
--- NOTE | 2018-03-03 05:42 | PN ---
PROGRESS NOTE DATE OF SERVICE: 03/02/2018 PRESENTING COMPLAINT: Acute renal failure. INTERVAL HISTORY: This patient has advanced dementia presented with acute UTI with cystitis, acute renal intake from decreased oral intake, hyperkalemia. The patient is eating better. Overall feeling better. Lying in bed. Family is looking to find a place for her. REVIEW OF SYSTEMS: Done for constitutional, cardiovascular, GI, pulmonary; relevant findings as above. CURRENT MEDICATIONS: Current medications are reviewed that include IV ceftriaxone, IV fluids. PHYSICAL EXAMINATION: On examination, temperature 97.4, pulse 65, respiration 17, blood pressure 160/77, pulse ox 92% on room air. GENERAL APPEARANCE: Sitting up, awake. EYES: Pupils equal. Conjunctivae normal. NECK: JVD not raised. Mass not palpable. RESPIRATORY: Effort . LUNGS: Fair entry. CARDIOVASCULAR: First and second sounds normal. No edema. ABDOMEN: Soft, nontender. Liver and spleen not palpable. PSYCHIATRY: Patient is able to answer simple questions. INVESTIGATIONS: Potassium 5.5, BUN 25, creatinine 1.02. TSH is normal. Urine culture unremarkable. CT scan of the brain shows age-related atrophy. Renal ultrasound shows bilateral kidney to be small in size. Chest x-ray reported to be normal. ASSESSMENT: 1. Acute urinary tract infection with cystitis. 2. Acute renal failure, prerenal from poor oral intake. 3. Hyperkalemia from renal failure. 4. Metabolic acidosis from renal failure. 5. Severe cognitive impairment from late onset Alzheimer's dementia. 6. Intermittent asthma, stable. 7. Essential hypertension. PLAN: Will give patient dose of Kayexalate 30 grams. Repeat electrolytes in the morning. DC IV fluids. Switch the patient over to oral antibiotic. The patient will need to go to a supervised setting. For blood pressure, will start the patient on amlodipine. MMODL / IJN: [id number] /
[2018-03-03] MEDS: ASPIRIN 81 MG PO SCH (07:39)
[2018-03-03] MEDS: CEPHALEXIN 250 MG CAP PO SCH ×4 (07:39→20:16)
[2018-03-03] MEDS: ENOXAPARIN 40 MG/0.4 ML SYRINGE SQ SCH (07:39)
[2018-03-03] MEDS: CHLORTHALIDONE 25 MG TAB PO SCH (07:39)
[2018-03-03 11:00] LABS: Potassium 4.6 mmol/L (3.5-5.1)
--- NOTE | 2018-03-03 13:47 | P.PN ---
Subjective On-call hospitalist covering for Dr. Milton starting 03/03/2018 through 2018 This is a pleasant 89 years old female with past medical history of asthma, dementia, hypertension, who presents because of UTI with acute cystitis and acute kidney injury, patient was dehydrated and hyperkalemia on admission. She received IV fluids and her creatinine is improved. Urine culture shows Hellen were going to repeat the urinalysis. We'll order B12. Her blood pressure on the right side was 214/111 and on the left side 203/95. Patient receives antibiotic blood pressure medication and it came down to 111/54. However patient still looks confused with she is oriented to place knowing that she is in a hospital in [place] but she did not know the time or the person. Going to repeat the urinalysis. Also physical therapy is pending. Objective - Vital Signs Vital signs: Vital Signs Temp 98.2 F 03/03/18 06:56 Pulse 75 03/03/18 06:56 Resp 18 03/03/18 06:56 BP 214/111 03/03/18 06:56 Pulse Ox 99 03/03/18 06:56 Intake & Output 03/02/18 03/03/18 03/03/18 18:59 06:59 18:59 Other: Voiding Method Toilet Toilet Toilet Diaper Diaper Diaper # Voids 1 2 - Exam GENERAL: The patient is alert and oriented x1, not in any acute distress. Well developed, well nourished. HEENT: Pupils are round and equally reacting to light. EOMI. No scleral icterus. No conjunctival pallor. Normocephalic, atraumatic. No pharyngeal erythema. No thyromegaly. CARDIOVASCULAR: S1 and S2 present. No murmurs, rubs, or gallops. PULMONARY: Chest is clear to auscultation, no wheezing or crackles. ABDOMEN: Soft, nontender, nondistended, normoactive bowel sounds. No palpable organomegaly. MUSCULOSKELETAL: No joint swelling or deformity. EXTREMITIES: No cyanosis, clubbing, or pedal edema. NEUROLOGICAL: Gross neurological examination did not reveal any focal deficits. SKIN: No rashes. - Labs CBC & Chem 7: 03/01/18 00:10 03/03/18 10:09 Labs: Abnormal Lab Results - Last 24 Hours (Table) 03/03/18 Range/Units 10:09 Chloride 112 H (98-107) mmol/L BUN 21 H (7-17) mg/dL Creatinine 1.18 H (0.52-1.04) mg/dL Glucose 101 H (74-99) mg/dL Microbiology - Last 24 Hours (Table) 03/01/18 00:10 Urine Culture - Final Urine,Voided Assessment and Plan Assessment: Metabolic encephalopathy Acute kidney injury Dehydration Acute urinary tract infection, improved with antibiotics Hyperkalemia Results Metabolic acidosis, secondary to acute kidney injury. Improving. Severe cognitive him impairment could be late onset Alzheimer. History of asthma History of hypertension. Plan: This is a pleasant 89 he uses female who presents with acute kidney injury and UTI. Continue with antibiotics. Patient looks at baseline she is confused. We 'll reorder urinalysis. Check vitamin B12.Labs and medication were reviewed.. Continue same treatment. Continue with symptomatic treatment. Resume home medication. Monitor lytes and vitals. DVT and GI prophylaxis. Further recommendations of the clinical course of the patient DVT prophylaxis: Subcutaneous heparin GI Prophylaxis: Pepcid PT/OT: Pending Prognosis is guarded
[2018-03-03] MEDS: FAMOTIDINE 20 MG/2 ML VIAL IV SCH (20:16)
[2018-03-03] MEDS ORDERED: HEPARIN SODIUM,PORCINE 5,000 UNIT/ML 1 ML VIAL SQ SCH (21:00)
[2018-03-04 06:48] VITALS: BP 113/68; PULSE 63; RESP 18; TEMP 97.8
[2018-03-04] MEDS ORDERED: CHLORTHALIDONE 25 MG TAB PO SCH (09:00)
[2018-03-04] MEDS: ENOXAPARIN 40 MG/0.4 ML SYRINGE SQ SCH (09:24)
[2018-03-04] MEDS: FAMOTIDINE 20 MG/2 ML VIAL IV SCH (09:24)
[2018-03-04] MEDS: CEPHALEXIN 250 MG CAP PO SCH ×2 (09:25→12:21)
[2018-03-04 11:59] LABS: Calcium 9.3 mg/dL (8.4-10.2); Potassium 4.4 mmol/L (3.5-5.1)
[2018-03-04] MEDS ORDERED: CEPHALEXIN 250 MG CAP PO SCH (22:00)
[2018-03-05] MEDS ORDERED: FAMOTIDINE 20 MG TAB PO SCH (09:00)
[2018-03-05] MEDS ORDERED: ENOXAPARIN 30 MG/0.3 ML SYRINGE SQ SCH (09:00)
== END 2018-03-04 15:38 | disposition home health service (06) | DRG 682 ==
LOC: EC 22:49 → 4MS4W 03-01 01:45 → OBSVTOIN 03-01 19:43
PROVIDERS: ADMIT Hospitalist; ATTEND Hospitalist
DX: N17.0 Acute kidney failure with tubular necrosis (principal); G93.41 Metabolic encephalopathy; N30.00 Acute cystitis without hematuria; E87.2 Acidosis; E86.0 Dehydration; E87.5 Hyperkalemia; F02.80 Dementia in other diseases classified elsewhere, unspecified severity, without behavioral disturbance, psychotic disturbance, mood disturbance, and anxiety; F32.9 Major depressive disorder, single episode, unspecified; G30.1 Alzheimer's disease with late onset; I10 Essential (primary) hypertension; J45.20 Mild intermittent asthma, uncomplicated; Z79.899 Other long term (current) drug therapy; Z79.51 Long term (current) use of inhaled steroids; Z79.82 Long term (current) use of aspirin; Z90.49 Acquired absence of other specified parts of digestive tract; Z82.5 Family history of asthma and other chronic lower respiratory diseases
CPT/HCPCS: 36415; 70450; 71046; 76770; 80048; 80053; 81001; 82607; 83735; 83880; 84443; 84484; 85025; 87086; 93005; 96360; 99285

== ENCOUNTER 2018-03-09 10:53 | Inpatient (IN) | payer MEDICARE, BC ==
[2018-03-09] MEDS ORDERED: SODIUM CHLORIDE 0.9% 500 ML 500 ML IV ONE (11:13)
--- NOTE | 2018-03-09 11:23 | ED ---
General Adult HPI - General Chief complaint: Nausea/Vomiting/Diarrhea Stated complaint: Diarrhea Time Seen by Provider: 03/09/18 11:00 Source: patient, family, EMS, RN notes reviewed Mode of arrival: EMS Limitations: no limitations - History of Present Illness Initial comments: This is an 82-year-old female presents emergency Department via EMS and the story that we were told was the patient had one episode of diarrhea and they decided to get to the emergency department early because last time he waited too long and she had to be admitted to the hospital. Patient herself is somewhat demented and does not know why she is here but she has no complete currently. Patient denies any chest pain difficulty breathing shortest breath per patient denies abdominal pain. Patient denies any nausea. Patient denies headache patient denies lightheadedness or dizziness. Patient denies any dysuria or hematuria or urinary frequency. Again patient is not a great historian she is alert and oriented 2 only. Family is not in the room at this time. - Related Data Home Medications Medication Instructions Recorded Confirmed Aspirin 81 mg PO DAILY 01/21/16 03/09/18 Sertraline [Zoloft] 50 mg PO DAILY 03/01/18 03/09/18 Albuterol Sulfate [Proair Hfa] 2 puff INHALATION RT-Q4H 03/09/18 03/09/18 Inulin/Chromium Picolinate [Fiber 1 tab PO DAILY 03/09/18 03/09/18 Gummies Chew] Previous Rx's Medication Instructions Recorded Candesartan Cilexetil [Atacand] 32 mg PO DAILY #1 tab 09/03/15 Chlorthalidone [Hygroton] 12.5 mg PO DAILY #15 tab 03/04/18 Famotidine [Pepcid] 20 mg PO DAILY #60 tab 03/04/18 Allergies Allergy/AdvReac Type Severity Reaction Status Date / Time No Known Allergies Allergy Verified 03/09/18 11:25 Review of Systems ROS Statement: Those systems with pertinent positive or pertinent negative responses have been documented in the HPI. ROS Other: All systems not noted in ROS Statement are negative. Past Medical History Past Medical History: Asthma, Dementia, Hypertension Additional Past Medical History / Comment(s): patient denies memory impairment, but is on aricept. History of Any Multi-Drug Resistant Organisms: None Reported Past Surgical History: Cholecystectomy Past Anesthesia/Blood Transfusion Reactions: No Reported Reaction Additional Past Anesthesia/Blood Transfusion Reaction / Comment(s): pt states she has not had a blood transfusion. Past Psychological History: Depression Smoking Status: Never smoker Past Alcohol Use History: None Reported Past Drug Use History: None Reported - Past Family History Mother Family Medical History: Asthma Father Family Medical History: COPD Additional Family Medical History / Comment(s): patient states, "he probably from smoking." General Exam - General Exam Comments Initial Comments: GENERAL: Patient is well-developed and well-nourished. Patient is nontoxic and well- hydrated and is in no acute distress. ENT: Neck is soft and supple. No significant lymphadenopathy is noted. Oropharynx is clear. Moist mucous membranes. Neck has full range of motion without eliciting any pain. EYES: The sclera were anicteric and conjunctiva were pink and moist. Extraocular movements were intact and pupils were equal round and reactive to light. Eyelids were unremarkable. PULMONARY: Unlabored respirations. Good breath sounds bilaterally. No audible rales rhonchi or wheezing was noted. CARDIOVASCULAR: There is a regular rate and rhythm without any murmurs gallops or rubs. ABDOMEN: Soft and nontender with normal bowel sounds. No palpable organomegaly was noted. There is no palpable pulsatile mass. SKIN: Skin is clear with no lesions or rashes and otherwise unremarkable. NEUROLOGIC: Patient is alert and oriented 2. Cranial nerves II through XII are grossly intact. Motor and sensory are also intact. Normal speech, volume and content. Symmetrical smile. MUSCULOSKELETAL: Normal extremities with adequate strength and full range of motion. LYMPHATICS: No significant lymphadenopathy is noted PSYCHIATRIC: Normal psychiatric evaluation. Limitations: no limitations Course Vital Signs 03/09/18 10:59 Temperature 97.1 F L Pulse Rate 66 Respiratory 18 Rate Blood Pressure 93/39 O2 Sat by Pulse 100 Oximetry Medical Decision Making - Medical Decision Making Patient a urinary tract infectious I started the patient on Rocephin order blood cultures and lactate. I spoke with Dr. Perrin he agreed to admit the patient admitted the patient wrote admitting orders. - Lab Data Result diagrams: 03/09/18 11:29 03/09/18 11:29 Lab Results 03/09/18 03/09/18 03/09/18 Range/Units 11:29 11:29 11:59 WBC 11.9 H (3.8-10.6) k/uL RBC 4.47 (3.80-5.40) m/uL Hgb 14.0 (11.4-16.0) gm/dL Hct 41.3 (34.0-46.0) % MCV 92.4 (80.0-100.0) fL MCH 31.2 (25.0-35.0) pg MCHC 33.8 (31.0-37.0) g/dL RDW 13.1 (11.5-15.5) % Plt Count 297 (150-450) k/uL Neutrophils % 72 % Lymphocytes % 14 % Monocytes % 6 % Eosinophils % 7 % Basophils % 0 % Neutrophils # 8.5 H (1.3-7.7) k/uL Lymphocytes # 1.6 (1.0-4.8) k/uL Monocytes # 0.7 (0-1.0) k/uL Eosinophils # 0.9 H (0-0.7) k/uL Basophils # 0.1 (0-0.2) k/uL Sodium 143 (137-145) mmol/L Potassium 4.4 (3.5-5.1) mmol/L Chloride 108 H (98-107) mmol/L Carbon Dioxide 25 (22-30) mmol/L Anion Gap 10 mmol/L BUN 46 H (7-17) mg/dL Creatinine 2.10 H (0.52-1.04) mg/dL Est GFR (CKD-EPI)AfAm 24 (>60 ml/min/1.73 sqM) Est GFR (CKD-EPI)NonAf 21 (>60 ml/min/1.73 sqM) Glucose 121 H (74-99) mg/dL Calcium 9.3 (8.4-10.2) mg/dL Total Bilirubin 0.5 (0.2-1.3) mg/dL AST 24 (14-36) U/L ALT 23 (9-52) U/L Alkaline Phosphatase 100 (38-126) U/L Total Protein 6.4 (6.3-8.2) g/dL Albumin 3.6 (3.5-5.0) g/dL Urine Color Yellow Urine Appearance Turbid H (Clear) Urine pH 5.0 (5.0-8.0) Ur Specific Startex 1.016 (1.001-1.035) Urine Protein 1+ H (Negative) Urine Glucose (UA) Negative (Negative) Urine Ketones Negative (Negative) Urine Blood Moderate H (Negative) Urine Nitrite Negative (Negative) Urine Bilirubin Negative (Negative) Urine Urobilinogen 3.0 (<2.0) mg/dL Ur Leukocyte Esterase Large H (Negative) Urine RBC 12 H (0-5) /hpf Urine WBC 138 H (0-5) /hpf Urine WBC Clumps Many H (None) /hpf Ur Squamous Epith Cells 33 H (0-4) /hpf Urine Bacteria Rare H (None) /hpf Hyaline Casts 76 H (0-2) /lpf Urine Mucus Moderate H (None) /hpf Disposition Clinical Impression: Dehydration, Urinary tract infection, Diarrhea, Renal insufficiency Disposition: ADMITTED IP TO THIS HOSP Referrals: Santy Crow DO [Primary Care Provider] - 1-2 days Time of Disposition: 12:42
[2018-03-09 11:43] LABS: Basophils # (A) 0.1 k/uL (0-0.2); Basophils % (A) 0 %; Eosinophils # (A) 0.9 k/uL (0-0.7); Eosinophils % (A) 7 %; HCT 41.3 % (34.0-46.0); Lymphocytes # (A) 1.6 k/uL (1.0-4.8); Lymphocytes % (A) 14 %; MCH 31.2 pg (25.0-35.0); MCHC 33.8 g/dL (31.0-37.0); MCV 92.4 fL (80.0-100.0); Mean Platelet Volume 7.5; Monocytes # (A) 0.7 k/uL (0-1.0); Monocytes % (A) 6 %; Neutrophils # (A) 8.5 k/uL (1.3-7.7); Neutrophils % (A) 72 %; Platelet Count 297 k/uL (150-450); RBC 4.47 m/uL (3.80-5.40); RDW 13.1 % (11.5-15.5); WBC 11.9 k/uL (3.8-10.6)
[2018-03-09 11:53] LABS: Albumin 3.6 g/dL (3.5-5.0); Calcium 9.3 mg/dL (8.4-10.2); Potassium 4.4 mmol/L (3.5-5.1); Total Bilirubin 0.5 mg/dL (0.2-1.3); Total Protein 6.4 g/dL (6.3-8.2)
[2018-03-09 12:12] LABS: Appearance,Urine Turbid (Clear); Bacteria,Urine Rare /hpf; Bilirubin,Urine Negative (Negative); Blood,Urine Moderate (Negative); Color,Urine Yellow; Glucose,Urine (UA) Negative (Negative); Hyaline Casts,Urine 76 /lpf (0-2); Ketones,Urine Negative (Negative); Leukocyte Esterase,Urine Large (Negative); Mucus,Urine Moderate /hpf; Nitrite,Urine Negative (Negative); Protein,Urine 1+ (Negative); RBC,Urine 12 /hpf (0-5); Specific Gravity,Urine 1.016 (1.001-1.035); Squamous Epithelial Cell,Urine 33 /hpf (0-4); WBC,Urine 138 /hpf (0-5)
[2018-03-09] MEDS ORDERED: cefTRIAXone 2,000 MG in SODIUM CHLORIDE 0.9% 100 ML IVPB STA (12:40)
[2018-03-09] MEDS ORDERED: SODIUM CHLORIDE 0.9% 1,000 ML IV ONE (12:43)
[2018-03-09 14:24] VITALS: BMI 20.8
[2018-03-09] MEDS ORDERED: HYDROcodone/APAP 5-325MG 1 EACH TAB PO PRN (18:27)
[2018-03-09] MEDS ORDERED: ALPRAZolam 0.25 MG TAB PO PRN (18:27)
[2018-03-09] MEDS ORDERED: ACETAMINOPHEN TAB 500 MG TAB PO PRN (18:27)
--- NOTE | 2018-03-10 07:00 | HP ---
HISTORY AND PHYSICAL DATE OF SERVICE: 03/09/2018 CHIEF COMPLAINTS: Diarrhea, UTI. HISTORY OF PRESENT ILLNESS: This 82-year-old woman with a past medical history of multiple medical problems including asthma, dementia, hypertension, history of cholecystectomy being followed by Dr. Alvina Crow in the outpatient setting apparently had diarrhea. The patient was evaluated for diarrhea in the ER and was found to have UTI. Patient admitted for further evaluation and treatment. The patient is confused, unable to give coherent history. Most of the history taken from my discussion with staff and review of the chart at this time. The patient is started on broad-spectrum IV antibiotics. PAST MEDICAL HISTORY: History of asthma, dementia, hypertension. MEDICATIONS: 1. Aspirin 81 mg p.o. daily. 2. Zoloft 50 mg p.o. daily. 3. Pepcid 20 mg. 4. Hygroton 12.5 mg. 5. Atacand 32 mg. ALLERGIES: None. FAMILY HISTORY, SOCIAL HISTORY, REVIEW OF SYSTEMS: Could not be taken because of the baseline change in mental status. No history of smoking, alcohol per chart. PHYSICAL EXAM: GENERAL: Patient is conscious, confused. VITAL SIGNS: Pulse 76, blood pressure 130/64, respirations 16, temperature 97.6, pulse ox 97% on room air. HEENT: Conjunctivae normal. NECK: No jugular venous distention, carotid bruit or lymph node enlargement. CARDIOVASCULAR: S1, S2 muffled. RESPIRATORY: Breath sounds diminished in the bases. No rhonchi. No crackles. ABDOMEN: Soft, nontender. No mass palpable. No guarding. No rigidity. LEGS: No edema. No swelling. NERVOUS SYSTEM: Higher functions as mentioned. Moves all 4 limbs. No focal motor or sensory deficits. LYMPHATICS: No lymph nodes palpable in the neck, axillae or groin. SKIN: No ulcer, rash or bleeding. LABS: WBC 11.2, hemoglobin is 14. Sodium 143, potassium 4.4, creatinine is 2.10. ASSESSMENT: 1. Acute urinary tract infection present on admission. 2. Change in mental status chronic metabolic encephalopathy. 3. Increased creatinine with acute on chronic renal failure, possibly secondary to acute tubular necrosis. 4. Dementia. 5. History of asthma. 6. History of hypertension. 7. History of cholecystectomy. 8. History of depression. 9. FULL CODE. RECOMMENDATIONS AND DISCUSSION: In this 82-year-old woman who presented with multiple complex medical issues, we will monitor the patient closely, continue the current medications, management and symptomatic treatment. Otherwise, at this time, I recommend IV antibiotics and cautious hydration. Repeat labs in the morning. Otherwise, further evaluation for diarrhea if it persist. Follow the cultures. Resume the home medications. Prognosis guarded because of multiple complex medical issues. Further recommendations to follow. A copy of dictation being forwarded to Dr. Alvina Crow who is the primary physician. MMTONG / MARÍAN: [id number] /
[2018-03-10] MEDS ORDERED: PANTOPRAZOLE 40 MG TABLET PO SCH (07:30)
[2018-03-10] MEDS: ASPIRIN 81 MG PO SCH (08:01)
[2018-03-10] MEDS: LOSARTAN 50 MG TAB PO SCH (08:01)
[2018-03-10] MEDS: SERTRALINE 50 MG TAB PO SCH (08:01)
[2018-03-10] MEDS: FAMOTIDINE 20 MG TAB PO SCH (08:01)
[2018-03-10] MEDS: CHLORTHALIDONE 25 MG TAB PO SCH (08:01)
[2018-03-10 11:15] LABS: Basophils % (A) 1 %; Eosinophils # (A) 0.9 k/uL (0-0.7); Eosinophils % (A) 12 %; HCT 37.1 % (34.0-46.0); HGB 11.8 gm/dL (11.4-16.0); Lymphocytes # (A) 1.8 k/uL (1.0-4.8); Lymphocytes % (A) 23 %; MCH 29.8 pg (25.0-35.0); MCHC 31.7 g/dL (31.0-37.0); MCV 94.1 fL (80.0-100.0); Mean Platelet Volume 7.4; Monocytes # (A) 0.5 k/uL (0-1.0); Monocytes % (A) 6 %; Neutrophils # (A) 4.5 k/uL (1.3-7.7); Neutrophils % (A) 57 %; Platelet Count 227 k/uL (150-450); RBC 3.94 m/uL (3.80-5.40); RDW 13.1 % (11.5-15.5); WBC 7.8 k/uL (3.8-10.6)
[2018-03-10 11:18] LABS: Calcium 8.8 mg/dL (8.4-10.2); Potassium 3.9 mmol/L (3.5-5.1)
[2018-03-10 12:00] LABS: Appearance,Urine Cloudy (Clear); Bilirubin,Urine Negative (Negative); Blood,Urine Negative (Negative); Budding Yeast,Urine Few /hpf; Color,Urine Yellow; Glucose,Urine (UA) Negative (Negative); Hyphae Yeast, Urine Rare /hpf; Ketones,Urine Negative (Negative); Leukocyte Esterase,Urine Large (Negative); Mucus,Urine Rare /hpf; Nitrite,Urine Negative (Negative); PH, Urine 5.5 (5.0-8.0); Protein,Urine Negative (Negative); RBC,Urine 1 /hpf (0-5); Specific Gravity,Urine 1.016 (1.001-1.035); Squamous Epithelial Cell,Urine 1 /hpf (0-4); Urobilinogen,Urine <2.0 mg/dL (<2.0); WBC,Urine 79 /hpf (0-5)
--- NOTE | 2018-03-10 17:48 | PN ---
PROGRESS NOTE DATE OF SERVICE: 03/10/2018 This 82-year-old woman was admitted with diarrhea as well as UTI is being closely monitored. Patient is started on broad-spectrum IV antibiotics. No chest pain. No palpitations. No fever. EXAM: Alert and oriented x3. Pulse is 51, blood pressure 170/72, respiration 20, temperature 97.7. Pulse ox 100 percent on room air. HEENT: Conjunctivae normal. NECK: No jugular venous distention. RESPIRATION: Breath sounds diminished in the bases. No rhonchi. No crackles. ABDOMEN is soft, nontender. No mass palpable. LEGS: No edema. No swelling. CENTRAL NERVOUS SYSTEM: No focal deficits. LABS: The creatinine is 1.28. UA noted and cultures are pending at this time. ASSESSMENT: 1. Acute urinary tract infection present on admission. 2. Change in mental status, with chronic metabolic encephalopathy. 3. Acute diarrheal disease. 4. Increased creatinine with acute on chronic renal failure, possibly secondary to acute tubular necrosis and dehydration. 5. Dementia. 6. History of asthma. 7. History of hypertension. 8. History of cholecystectomy. 9. History of depression. 10.FULL CODE. RECOMMENDATIONS AND DISCUSSION: I recommend to continue current medications, management and symptomatic treatment. Continue with antibiotics. Continue with IV fluids. Monitor creatinine closely. Otherwise increase ambulation. PT/OT evaluation. Guarded prognosis. Further recommendations to follow. MMODL / IJN: [id number] /
[2018-03-11] MEDS: CHLORTHALIDONE 25 MG TAB PO SCH (08:40)
[2018-03-11] MEDS: SERTRALINE 50 MG TAB PO SCH (08:40)
[2018-03-11] MEDS: FAMOTIDINE 20 MG TAB PO SCH (08:40)
[2018-03-11] MEDS: LOSARTAN 50 MG TAB PO SCH (08:40)
[2018-03-11] MEDS: ASPIRIN 81 MG PO SCH (08:46)
[2018-03-11 09:59] LABS: Basophils # (A) 0.1 k/uL (0-0.2); Basophils % (A) 1 %; Eosinophils % (A) 12 %; HCT 40.4 % (34.0-46.0); HGB 13.3 gm/dL (11.4-16.0); Lymphocytes # (A) 2.2 k/uL (1.0-4.8); Lymphocytes % (A) 26 %; MCH 30.9 pg (25.0-35.0); MCV 93.4 fL (80.0-100.0); Mean Platelet Volume 7.7; Monocytes # (A) 0.5 k/uL (0-1.0); Monocytes % (A) 6 %; Neutrophils # (A) 4.5 k/uL (1.3-7.7); Neutrophils % (A) 54 %; Platelet Count 243 k/uL (150-450); RBC 4.33 m/uL (3.80-5.40); WBC 8.3 k/uL (3.8-10.6)
[2018-03-11 10:06] LABS: Calcium 9.4 mg/dL (8.4-10.2); Potassium 4.5 mmol/L (3.5-5.1)
--- NOTE | 2018-03-11 10:57 | CDI ---
Documentation Clarification Form Date: 03/11/2018 10:38:57 AM From: Hope De Leon RN, CCDS Admit Date: 03/10/2018 3:10:00 PM Patient Name: Myah Pulliam Visit Number: [id number] Discharge Date: ATTENTION: The Clinical Documentation Specialists (CDI) and [facility] Coding Staff appreciate your assistance in clarifying documentation. Please respond to the clarification below the line at the bottom and electronically sign. The CDI & [facility] Coding staff will review the response and follow-up if needed. Please note: Queries are made part of the Legal Health Record. If you have any questions, please contact the author of this message via ITS. Dr. Dinora Perrin Patient was admitted with increased creatinine with acute on chronic renal failure, possibly secondary to acute tubular necrosis, per your H/P and progress notes. History/Risk Factors: Hypertension, Dementia, Clinical Indicators: Present to ED via EMS because the patient had one episode of diarrhea. Patient noted to be well-developed and well-nourished. Vital signs on admission 93/39 66 18 97.1 100 % RA UA: Large Leukocyte Esterase, hyaline Casts 76 On admission 03/09/17: BUN 46, CR 2.10 GFR 21 03/10/17: BUN 32, CR 1.28 GFR 39 03/11/17: BUN 25, CR 1.10 GFR 46 Patients Baseline BUN/CR/GFR: Not noted Treatment: IVF Monitor creatinine closely In order to capture the severity of condition, please clarify if the condition signifies: CKD Stage 1 (GFR > 90) CKD Stage 2 (GFR 60-89) CKD Stage 3 (GFR 30-59) CKD Stage 4 (GFR 15-29) CKD Stage 5 (GFR <15) Other, please specify Unable to determine (Last Revision: June 2017) CKD Stage 3 (GFR 30-59) MTDD
--- NOTE | 2018-03-11 17:22 | PN ---
PROGRESS NOTE DATE OF SERVICE: 03/11/2018 This 82-year-old woman was admitted UTI. Also had change in mental status. Patient being closely monitored. ECF rehab is being planned. There is no chest pain. No palpitations. Apparently [facility] is being looked at. Preauthorization pending per staff. EXAM: Patient is conscious, confused. Pulse 61. Blood pressure 99/60. Respirations 16, temperature 97.8, pulse ox 97% on room air. HEENT: Conjunctivae normal. NECK: No jugular venous distention. CARDIOVASCULAR: S1, S2 muffled. Respirations: Breath sounds diminished in the bases. No rhonchi. No crackles. ABDOMEN is soft, nontender. No mass palpable. LEGS: No edema. No swelling. CENTRAL NERVOUS SYSTEM: No focal deficits. Mild diffuse weakness. LABS: WBC 8.8, hemoglobin 13.3, creatinine 1.10. UA noted. ASSESSMENT: 1. Acute urinary tract infection present on admission, not related to Bermudez catheter. 2. Change in mental status with chronic metabolic encephalopathy. 3. Acute diarrheal disease. 4. Increased creatinine with acute on chronic renal failure, possibly secondary to acute tubular necrosis, dehydration. 5. Chronic kidney disease stage 3 baseline. 6. Dementia. 7. History of asthma. 8. History of hypertension. 9. History of cholecystectomy. 10.History of depression. 11.FULL CODE. RECOMMENDATIONS AND DISCUSSION: Recommend to continue current medications, management and symptomatic treatment. Repeat labs. Continue the antibiotics. PT/OT evaluation, possible ECF rehab. Guarded prognosis. Further recommendations to follow. MMODL / IJN: [id number] / MTDD
[2018-03-12] MEDS: LOSARTAN 50 MG TAB PO SCH (08:09)
[2018-03-12] MEDS: SERTRALINE 50 MG TAB PO SCH (08:09)
[2018-03-12] MEDS: FAMOTIDINE 20 MG TAB PO SCH (08:10)
[2018-03-12] MEDS: CHLORTHALIDONE 25 MG TAB PO SCH (08:21)
[2018-03-12 09:51] LABS: Basophils # (A) 0.1 k/uL (0-0.2); Basophils % (A) 1 %; Eosinophils % (A) 12 %; HCT 41.5 % (34.0-46.0); HGB 13.3 gm/dL (11.4-16.0); Lymphocytes % (A) 25 %; MCH 29.8 pg (25.0-35.0); MCHC 31.9 g/dL (31.0-37.0); MCV 93.4 fL (80.0-100.0); Mean Platelet Volume 7.8; Monocytes # (A) 0.4 k/uL (0-1.0); Monocytes % (A) 5 %; Neutrophils # (A) 4.6 k/uL (1.3-7.7); Neutrophils % (A) 56 %; Platelet Count 228 k/uL (150-450); RBC 4.44 m/uL (3.80-5.40); WBC 8.3 k/uL (3.8-10.6)
[2018-03-12 10:02] LABS: Calcium 9.3 mg/dL (8.4-10.2); Potassium 4.6 mmol/L (3.5-5.1)
--- NOTE | 2018-03-12 11:13 | P.DS ---
Providers Date of admission: 03/10/18 15:10 Expected date of discharge: 03/12/18 Attending physician: Dinora Perrin Primary care physician: Santy Crow [facility] Course: Final Diagnoses: -Acute UTI with Reina SP, present on admission not related to Bermudez catheter -Change in mental status with chronic metabolic encephalopathy, improved -Acute diarrheal disease, improved -Acute on chronic renal failure possibly secondary to ATN, dehydration -Chronic kidney disease stage III, baseline -Dementia Hospital course: This is a 82-year-old female admitted with acute UTI with change in mental status. Urine culture reporting Reina SP, not albicans.Maintained on gentle IV fluid hydration, antibiotics. Significant clinical improvement. Patient is being discharged to [facility] in a stable condition with guarded prognosis. Exam; General: Alert, confused.CV: S1, S2 muffled.LUNGS: Bilateral bases diminished. ABD: Soft, nontender, positive bowel sounds.NEURO: No focal deficits. The impression and plan of care has been dictated as directed. Dr.: I performed a history and examination of this patient, discussed the same with the dictator. I agree with the dictator's note ,documented as a scribe. Any additional findings or plans will be noted. Time taken: 35 minutes Patient Condition at Discharge: Stable Plan - Discharge Summary Discharge Rx Participant: No New Discharge Prescriptions: New Cefuroxime Axetil [Ceftin] 500 mg PO BID #10 tab Acetaminophen Tab [Tylenol] 500 mg PO Q6HR PRN tab PRN Reason: Fever and/ or Mild Pain Continue Candesartan Cilexetil [Atacand] 32 mg PO DAILY #1 tab Aspirin 81 mg PO DIRECTED Sertraline [Zoloft] 50 mg PO DAILY Chlorthalidone [Hygroton] 12.5 mg PO DAILY #15 tab Famotidine [Pepcid] 20 mg PO DAILY #60 tab Discharge Medication List Candesartan Cilexetil [Atacand] 32 mg PO DAILY #1 tab 09/03/15 [Rx] Aspirin 81 mg PO DIRECTED 01/21/16 [History] Sertraline [Zoloft] 50 mg PO DAILY 03/01/18 [History] Chlorthalidone [Hygroton] 12.5 mg PO DAILY #15 tab 03/04/18 [Rx] Famotidine [Pepcid] 20 mg PO DAILY #60 tab 03/04/18 [Rx] Cefuroxime Axetil [Ceftin] 500 mg PO BID #10 tab 03/11/18 [Rx] Acetaminophen Tab [Tylenol] 500 mg PO Q6HR PRN tab 03/12/18 [Rx] Follow up Appointment(s)/Referral(s): Santy Crow DO [Primary Care Provider] - 3 Days Ambulatory/Diagnostic Orders: Complete Blood Count w/diff [LAB.AMB] Time Frame: 3 Days, Location: None Selected Activity/Diet/Wound Care/Special Instructions: Sammy Mcfadden Diet: cardiac Activity: As tolerated cbc,bmp in 3 days
[2018-03-12 15:14] VITALS: BP 92/58; PULSE 55; RESP 16; TEMP 98.2
--- NOTE | 2018-03-12 16:04 | CONS ---
CONSULTATION DATE OF SERVICE: 03/12/2018 REASON FOR CONSULTATION: Urinary tract infection and discharge antibiotic recommendation. HISTORY OF PRESENT ILLNESS: The patient is an 82-year-old female who was brought into the ER at [facility] on 03/09/2018 apparently with nausea, vomiting and diarrhea. Apparently EMS was called in for the patient having an episode of diarrhea. The patient denies any symptoms to me at this point. When the patient presented to the hospital on initial presentation she was noted to be afebrile. Her white count was normal at 7.8. The patient did have a positive UA, though, which showed large leukocyte esterase, 79 WBCs with budding yeast. The patient has been treated with Rocephin; however, the cultures are now showing a gwen species, not albicans/glabrata. Patient currently is stable for discharge to [facility] pending discharge antibiotic recommendation. Patient currently denies having any headache to me. No chest pain. No shortness of breath or cough. No abdominal pain or diarrhea. No significant burning or frequency of urine. REVIEW OF SYSTEMS: Positive points have been mentioned in HPI. The rest of the systems has been negative. PAST MEDICAL HISTORY: 1. Asthma. 2. Dementia. 3. Hypertension. 4. History of UTI. PAST SURGICAL HISTORY: Cholecystectomy. SOCIAL HISTORY: Denies smoking, drinking or drug use. FAMILY HISTORY: Mother with history of asthma. Father with history of COPD. ALLERGIES: NO KNOWN DRUG ALLERGIES. CURRENT MEDICATIONS: Include: 1. Tylenol. 2. [place]. 3. Xanax. 4. Aspirin. 5. Rocephin. 6. Pepcid. 7. Cozaar. 8. Zoloft. PHYSICAL EXAMINATION: Blood pressure is 133/65 with a pulse of 52, temperature 98.1. She is 96% on room air. General description is an elderly female lying in bed in no distress. No tachypnea or accessory muscle of respiration use. HEENT examination shows no pallor or scleral icterus. Oral mucosa membrane is dry. No pharyngeal erythema or thrush. NECK: Trachea is central. No thyromegaly. LUNGS: Unlabored breathing. Clear to auscultation anteriorly. No wheeze or crackle. HEART: S1, S2. Regular rate and rhythm. ABDOMEN: Soft. No tenderness. No guarding or rigidity. EXTREMITIES: No edema of the feet. SKIN EXAMINATION: No rash or mass palpable. Neurologically the patient awake, alert, oriented . Mood and affect normal. LABS: Hemoglobin 13.3, white count 8.3, BUN of 28, creatinine is 1.18. UA has been positive with the culture showing gwen. DIAGNOSTIC IMPRESSION AND PLAN: Patient admitted to hospital with an episode of diarrhea and mental status changes which are likely multifactorial. Possible UTI with urine showing persistent gwen species. It is non-albicans; however, the patient currently does not look toxic, and clinically doubt any deep infection. It could be mild cystitis. Would recommend against any nephrotoxic agents at this point. PLAN: 1. Diflucan 100 mg p.o. daily for 5 days. 2. The patient is cleared to be discharged from infectious disease standpoint. This was communicated to the nurse practitioner working on the discharge. MMODL / MARÍAN: [id number] /
== END 2018-03-12 17:54 | DRG 757 ==
LOC: EC 10:53 → 4MS4W 12:48 → OBSVTOIN 03-10 15:10
PROVIDERS: ADMIT Hospitalist; ATTEND Hospitalist
DX: B37.49 Other urogenital candidiasis (principal); G93.41 Metabolic encephalopathy; N17.0 Acute kidney failure with tubular necrosis; E86.0 Dehydration; F03.90 Unspecified dementia, unspecified severity, without behavioral disturbance, psychotic disturbance, mood disturbance, and anxiety; I12.9 Hypertensive chronic kidney disease with stage 1 through stage 4 chronic kidney disease, or unspecified chronic kidney disease; J45.909 Unspecified asthma, uncomplicated; N18.3 Chronic kidney disease, stage 3 (moderate); Z79.82 Long term (current) use of aspirin; Z82.5 Family history of asthma and other chronic lower respiratory diseases; Z87.440 Personal history of urinary (tract) infections; Z90.49 Acquired absence of other specified parts of digestive tract; F32.9 Major depressive disorder, single episode, unspecified; Z79.899 Other long term (current) drug therapy
CPT/HCPCS: 36415; 80048; 80053; 81001; 83605; 85025; 87040; 87086; 96360; 99285